=== PATIENT | female | born 1990 | race Two or more races ===

== ENCOUNTER 2025-02-06 08:19 | Outpatient (AMB) | payer MEDICAID, SELFPAY ==
[2025-02-06 08:39] VITALS: BP 107/73; PULSE 81; RESP 16; TEMP 36.6; O2SAT 96; BMI 32.2
--- NOTE | 2025-02-06 08:39 | AMB.GYNCLNOT ---
Vital Signs 02/06/25 08:39 Height 1.6 m Height Method Stated Weight 82.554 kg Weight Measurement Method Standing Scale BMI 32.2 BP 107/73 Blood Pressure Source Automatic Cuff Blood Pressure Location Left Upper Arm Position Sitting Respiration 16 Pulse 81 Pulse Source Monitor Temp 97.8 F Temp Source Oral Pulse Oximetry (%) 96 Oxygen Delivery Method Room Air Allergies/Home Meds Allergies & Medications Allergies No Known Allergies Allergy (Verified 02/06/25 08:40) Medication Reconciliation No Known Home Medications 01/21/25 [History Confirmed 02/06/25] Intake Visit Data Collection New Patient or Established: Established Patient (seen at [facility] within 3 years) Reason for Visit:: ANNUAL WELLNESS Seen by Clinical Staff ONLY (RN/MA): No Promotional Representative Required: No Do You Feel Safe at Home: Yes Authorities Contacted: N/A PCP or OBGYN visit in last 3 months: Yes Hx Now: No Are you currently on any form of Control: No Last menstrual period: 01/07/25 Pain Present Currently: No Pain Scale Used: Brooke-Chinchilla/Numerical Pain scale:: 0 Smoking Status Smoking Status: Never smoker 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 1. Little interest or pleasure in doing things: not at all 2. Feeling down, depressed, or hopeless: not at all Total score: 0 PHQ-9 3. Trouble falling or staying asleep, or sleeping too much: Not at all 4. Feeling tired or having little energy: Not at all 5. Poor appetite or overeating: Not at all 6. Feeling bad about yourself - or that you are a failure or have let yourself or your family down: Not at all 7. Trouble concentrating on things, such as reading the newspaper or watching television: Not at all 8. Moving or speaking so slowly that other people could have noticed? - Or the opposite - being so fidgety or restless that you have been moving around a lot more than usual: not at all 9. Thoughts that you would be better off or of hurting yourself in some way: Not at all Total score: 0 Source: Developed by Drs. Kevin Rizo, Kathy Vidal, Pan Black and colleagues, with an educational myrtle from [employer]. 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 Last period January 07, 2025. Patient reports menses are every month lasting 5 to 7 days. Her last Pap 2021. Condoms are used for contraception with good compliance. Denies any existence of past medical history. Denies surgeries. Drinks occasionally. No complaints of vaginal discharge, itching, burning. No [employer]Y CE[employer] ASSEMBLY SUPERVISOR discomforts or questions Review of Systems Review of Systems Systems Reviewed: All systems reviewed, normal except as documented Exam Narrative Physical exam: Euthyroid. Breasts are soft. Symmetrical. No masses. Nipples erect. Abdomen soft, nontender. No masses palpated. Perineum intact no lesions. Vagina pink no abnormal discharge. Uterus normal size and shape mobile nontender. Cervix was friable. Small amount of blood during the Pap. No CMT no unusual discharge or odor General Limitations: no limitations General Appearance: alert, in no apparent distress, comfortable, cooperative, healthy appearing, well developed and well groomed Head Head exam: atraumatic, normocephalic and normal inspection Neck Neck exam: Present normal inspection, full ROM and trachea midline Resp Respiratory exam: Present normal lung sounds bilaterally Card Cardiovascular exam: Present regular rate, normal rhythm and normal heart sounds Abdominal Abdominal exam: Present soft and normal bowel sounds Speculum exam: Present normal speculum exam Bimanual exam: Present normal bimanual exam Extremities Extremities exam: Present normal inspection Office Procedures OB Clinic LOC & Office Proc's Nursing/Assessment Patient Status: Established Patient OB Clinic Nursing Assessment: Medication Reconciliation, Update PMH in EMR and Vital Signs OB Clinic Coordination of Care: Complex Care and Chronic Disease 1-5, Consent,records obtained, informed consent, Education Simp Pt/Fam, Lab and Imaging orders and Staff clarify orders Miscellaneous Interventions: Pelvic/Pap Smear Set up Established Patient Charge Established Patient Point Assignment: 120 Established Patient Point Charge: EP Level 4 (120-155) In Clinic Procedures Pap Smear: Yes Assessment & Plan Diagnosis / Problem List (1) Well woman exam: Status: Acute (2) Encounter for Papanicolaou smear for cervical cancer screening: Status: Acute (3) Encounter for screening for human papillomavirus (HPV): Status: Acute (4) Encounter for surveillance of other contraceptives: Status: Acute Plan Pap today. Discussed self breast exam monthly. Mammo at 38. Pap smear will be repeated in 5 years. Discussed diet and exercise. And I discussed condom compliance and effectiveness. Return in 5 years Additional Plan Follow Up: 5 Years (pap and mammo) COMPLAINT INSPECTOR: Papsmear Pap Smear Procedure Chaparone in room during procedure?: No Pre-op diagnosis general: pap Post-op diagnosis procedure note: Same Procedure Notes:: tolerated well pap collected Papsmear completed: yes
== END 2025-02-06 09:58 | disposition home or self-care (01) ==
LOC: HODSOBC 08:19
PROVIDERS: PCP Physician Assistant; Referring Provider Physician Assistant; Supervising Provider Advanced Practice Midwife; Visit Provider Advanced Practice Midwife
DX: Z01.419 Encounter for gynecological examination (general) (routine) without abnormal findings (principal); Z11.51 Encounter for screening for human papillomavirus (HPV); Z30.49 Encounter for surveillance of other contraceptives; N72 Inflammatory disease of cervix uteri
CPT/HCPCS: 99214; Q0091; G0463

== ENCOUNTER → 2025-04-09 | Outpatient (CLI) | payer MEDICAID, SELFPAY ==
--- NOTE | 2025-04-09 | XR_ITS ---
Examination: Sacrum and coccyx 3 views Technique: AP, inclined AP lateral sacrum and coccyx 3 views Date and time: April 09, 2025, 0737 hrs. Indications: Tailbone pain beginning 4 weeks ago. Findings: Symmetrical sacral foramina Satisfactory alignment sacrococcygeal segments on the lateral view No sacral or coccygeal fracture Impression: No sacral or coccygeal fracture
== END | disposition home or self-care (01) ==
DX: M53.3 Sacrococcygeal disorders, not elsewhere classified (principal)
CPT/HCPCS: 72220